=== PATIENT | female | born 1950 | race African-American/Black ===

== ENCOUNTER 2017-10-11 11:11 | Inpatient (IN) | payer OTHER, MEDICARE ==
[~2017-10-11] VITALS: Ht 162.6 cm; Wt 56.7 kg
[~2017-10-11 11:11] MED LIST: KEFLEX500 M1 PO
--- NOTE | 2017-10-11 11:56 | ED GENERAL ADULT ---
History of Present Illness General Chief Complaint: General Adult Stated Complaint: BIBA R SIDED FOOT PAIN, GENERAL WEAKNESS Source: patient, family, old records, EMS Exam Limitations: poor historian Vital Signs & Intake/Output Vital Signs & Intake/Output Vital Signs Date Time Temp Pulse Resp B/P B/P Pulse O2 O2 Flow FiO2 Mean Ox Delivery Rate 10/11 1414 97.6 70 18 148/72 95 Room Air 10/11 1124 97.8 65 15 172/78 95 Room Air Room Air Allergies Coded Allergies: No Known Allergies (10/11/17) Reconcile Medications Cephalexin (Keflex) 500 MG CAPSULE 1 CAP PO BID UTI Triage Note: PT TO ED FOR C/C OF NOT URINATING SINCE LAST NIGHT. PT EVAL'D IN THIS ED LAST NIGHT FOR BLOOD IN URINE. PT STATES SHE HASN'T BEEN ABLE TO VOID SINCE. ALSO COMPLAINS OF A PAINFUL CORN TO HER RIGHT GREAT TOE. Triage Nurses Notes Reviewed? yes Onset: Gradual Duration: worse persistent since (1 day) Timing: recent history Injury Environment: home Severity: moderate No Modifying Factors: none HPI: Patient is a 67-year-old female presenting to the emergency department from home with chief complaint of unable to urinate since this morning. 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 Patient does have chronic renal failure, per daughter patient has a difficult time drinking fluids. Also daughter reports that patient has had difficulty in regulating been progressively getting worse over the past several weeks. No falls. Daughter cannot take up the patient in transfer her any longer. Daughter thinks she is unsafe at home due to fall risk. Daughter thinks she may need rehabilitation. (Michelle Santiago) Past History Travel History Traveled to [place] past 21 day No Medical History Any Pertinent Medical History? see below for history Neurological: CVA W/ R SIDE DEFICIT Cardiovascular: hypertension, PACE MAKER Renal: ?CKD BUT REFUSES DIALYSIS Surgical History Surgical History: non-contributory Psychosocial History Who do you live with Daughter Services at Home None What is your primary language Kyrgyz Tobacco Use: Never used Family History Hx Contributory? No (Michelle Santiago) Review of Systems Review of Systems Constitutional: Reports: no symptoms. Comments Review of systems: See HPI, All other systems negative. Constitutional, no chills fever or weight loss HEENT: No visual changes no sore throat no congestion Cardiovascular: No chest pain ,palpitation Skin, no jaundice no rashes Respiratory: No dyspnea cough sputum or hemoptysis GI: No nausea no vomiting : pos hematuria Muscle skeletal: no back pain, no neck pain, Neurologic: No numbness no confusion no headaches Psych: No stress anxiety or depression,. Heme/endocrine: No bruising no bleeding no polyuria or polydipsia Immunology: No splenectomy or history of AIDS (Michelle Santiago) Physical Exam Physical Exam General Appearance: well developed/nourished, no apparent distress, alert, awake , comfortable Comments: thin person in no acute distress HEENT: atraumatic, normalcephalic, slightly dry oral mucosa Neck: Normal inspection Back: Nontender, NO CVA TENDERNESS Cardiovascular: Regular rate and rhythms no murmurs rubs or gallops Respiratory: No respiratory distress.breath sounds clear to auscultation bilaterally Abdomen: Soft, nontender nondistended, no appreciable organomegaly. Normal bowel sounds. No ascites, no rebound or guarding. Extremity: No edema, no calf tenderness to palpation, normal and equal pulses. Right foot in a Brace. Residual deficits on the right lower extremity FROM SVA. Neuro: Alert oriented to baseline Skin: No appreciable rash on exposed skin, skin is warm and dry. Psych: Mood and affect is normal, memory and judgment is normal. Core Measures ACS in differential dx? No CVA/TIA Diagnosis: No Sepsis Present: No Sepsis Focused Exam Completed? No (Michelle Santiago) Progress Differential Diagnoses I considered the following diagnoses in my evaluation of the patient: Dehydration, electrolyte abnormality, acute kidney injury, acute on chronic kidney injury, gait instability, multifactorial gait disorder, PYELO, KIDNEY STONE Plan of Care: Orders Procedure Date/time Status Regular Diet 10/11 D Active PARTIAL THROMBOPLASTIN TIME 10/11 1441 Active PROTHROMBIN TIME 10/11 1441 Active BLOOD CULTURE 10/11 1430 Active Patient Data 10/11 1422 Active OXYGEN SETUP (GEN) 10/11 1420 Active Saline Lock 10/11 1420 Active Admit to inpatient 10/11 1420 Active Vital Signs 10/11 1420 Active Activity/Ambulation 10/11 1420 Active Code Status 10/11 1420 Active Intake & Output 10/11 1258 Active URINALYSIS 10/11 1155 Complete COMPREHENSIVE METABOLIC PANEL 10/11 1155 Complete CBC WITHOUT DIFFERENTIAL 10/11 1155 Complete Current Medications Sig/Judah Start time Last Medication Dose Stop Time Status Admin Sodium Chloride 1,000 ML ONCE ONE 10/11 1315 AC 10/11 (Normal Saline 0.9%) 10/11 1953 1424 Laboratory Tests 10/11/17 1245: Urine Color YEL, Urine Clarity HAZY H, Urine pH 7.0, Ur Specific [place] 1.020, Urine Protein NEG, Urine Ketones NEG, Urine Nitrite NEG, Urine Bilirubin NEG, Urine Urobilinogen 1.0, Ur Leukocyte Esterase NEG, Ur Microscopic SEDIMENT EXAMINED, Urine RBC 15-25 H, Urine WBC 3-5 H, Ur Epithelial Cells MOD H, Urine Bacteria MOD H, Urine Hemoglobin SMALL H, Urine Glucose NEG 10/11/17 1200: Anion Gap 14, Estimated GFR 37 L, BUN/Creatinine Ratio 17.1, Glucose 102 H, Calcium 9.4, Total Bilirubin 0.8, AST 27, ALT 14, Alkaline Phosphatase 97, Total Protein 8.4 H, Albumin 3.9, Globulin 4.5 H, Albumin/Globulin Ratio 0.9 L, CBC w Diff NO MAN DIFF REQ, RBC 3.80 L, MCV 95.5, MCH 31.3 H, MCHC 32.8 L, RDW 14.6 H, MPV 8.2, Gran % 73.2, Lymphocytes % 17.8 L, Monocytes % 8.1, Eosinophils % 0.6, Basophils % 0.3, Absolute Granulocytes 4.5, Absolute Lymphocytes 1.1 L, Absolute Monocytes 0.5, Absolute Eosinophils 0, Absolute Basophils 0 Microbiology 10/11 143 BLOOD: Blood Culture - ORD 10/11 143 BLOOD: Blood Culture - ORD Initial ED EKG: none Comments: PT MAX assist of 3 trying to pivot and transfer from patient from the wheelchair to the bed. Patient unsafe to be discharged home. Patient will require IV hydration, rehabilitation. Patient imaging from yesterday shows pyelonephritis. Patient urine looks improved today. We will treat patient for pyelonephritis with IV Rocephin, blood cultures. (Tai DE SANTIAGO,Michelle) Departure Departure Time of Disposition: 1309 Disposition: STILL A PATIENT Condition: Stable Clinical Impression Primary Impression: Pyelonephritis Secondary Impressions: Dehydration, Multifactorial gait disorder Referrals: Carlee Steward APRN (PCP/Family) Departure Forms: Customer Survey General Discharge Information Admission Note Spoke With: Jc Hernandez MD Documentation of Exam: Documentation of any treatments & extenuating circumstances including Concerns Regarding Discharge (functional status, medication knowledge or non-compliance, living conditions, etc.) that warrant an admission rather than observation: Patient requiring IV hydration, physical therapy consultation, case management consultation, rehabilitation placement secondary to weakness, discharge at this time is medically harmful secondary to increased fall risk. (Michelle Santiago) PA/PULMONOLOGIST/INTENSIVIST Co-Sign Statement Statement: ED Attending supervision documentation- x I saw and evaluated the patient. I have also reviewed all the pertinent lab results and diagnostic results. I agree with the findings and the plan of care as documented in the PA's/PULMONOLOGIST/INTENSIVIST's documentation. Increasing weakness unable to ambulate without significant assistance with UTI [] I have reviewed the ED Record and agree with the PA's/PULMONOLOGIST/INTENSIVIST's documentation. [] Additions or exceptions (if any) to the PAs/PULMONOLOGIST/INTENSIVIST's note and plan are summarized below: [] (Harper MORALES,Miles) Critical Care Note Critical Care Note Critical Care Time: non-applicable (Michelle Santiago)
[2017-10-11 12:08] LABS: ABSOLUTE BASOPHIL COUNT 0 /CUMM (0.0-0.2); ABSOLUTE EOSINOPHIL COUNT 0 /CUMM (0.0-0.7); ABSOLUTE GRANULOCYTE CT 4.5 /CUMM (1.4-6.5); ABSOLUTE LYMPH COUNT 1.1 /CUMM (1.2-3.4); ABSOLUTE MONOCYTE COUNT 0.5 /CUMM (0.10-0.60); BASOPHIL % 0.3 % (0.0-2.0); EOSINOPHIL % 0.6 % (0-5); HEMATOCRIT 36.2 % (37-47); MEAN CORPUSCULAR HGB 31.3 PG (27.0-31.0); MEAN CORPUSCULAR HGB CONC 32.8 G/DL (33.0-37.0); MEAN CORPUSCULAR VOLUME 95.5 FL (81.0-99.0); MEAN PLATELET VOLUME 8.2 FL (7.4-10.4); PLATELET COUNT 194 /CUMM (130-400); RBC DISTRIBUTION WIDTH 14.6 % (11.5-14.5); WHITE BLOOD CELL COUNT 6.1 /CUMM (4.8-10.8)
[2017-10-11 12:11] LABS: GRANULOCYTE % 73.2 % (42.2-75.2)
[2017-10-11 15:35] LABS: PT 35.5 SEC (9.4-12.5); PTT 42 SEC (25-37)
--- NOTE | 2017-10-11 16:58 | History & Physical ---
Adonis Hahn 10/11/17 1307: General Information and HPI MD Statement: I have seen and personally examined XAVIER MORTON and documented this H&P. The patient is a 67 year old F who presented with a patient stated chief complaint of unable to urinate and urinary symptoms. Source of Information: patient, family Exam Limitations: no limitations History of Present Illness: This is a unfortunate 67-year-old female with past medical history significant for CVA with residual right-sided hemiplegia, speech deficit, hypertension, hyperlipidemia, hypothyroidism, atrial fibrillation on Coumadin, pacemaker placement, chronic kidney disease, neuropathy presented to the ER with chief complaint of unable to urinate. Patient was seen in the [facility] emergency department on 10/10/2017 for similar complaints. She was found to have urinary tract infection and hemoglobinuria. INR was supratherapeutic 4.5. She was discharged on Keflex and she was advised not to take Coumadin for next 2-3 days. However she couldn't pick her Keflex prescription. CAT scan abdomen findings were suggestive of mild asymmetric left -sided perinephric stranding and mild left hydronephrosis. Patient went home last night, after that she couldn't urinate because she was so weak and she couldn't get out of her bed. She denies any frequency, urgency, dysuria, lower abdominal pain, fever or chills. Patient has stroke 25 years back with the residual right-sided hemiplegia, speech deficit, uses a right leg brace and walker to ambulate. Because of urinary tract infection and generalized weakness she couldn't ambulate since last night. She was brought in to the emergency room again for further evaluation. She denies any shortness of breath, chest pain, palpitation, fever, chills, cough, nausea, vomiting, abdominal pain, constipation or diarrhea. Review of systems negative except for generalized weakness, urinary symptoms. She denies any smoking, illicit drug abuse, alcohol abuse. she has a visiting nurse who comes 3 times in a week. At baseline she ambulates with the help of walker and right leg brace. Allergies/Medications Allergies: Coded Allergies: No Known Allergies (10/11/17) Compliance With Home Meds: GOOD Past History Travel History Traveled to [place] past 21 day No Medical History Neurological: CVA W/ R SIDE DEFICIT Cardiovascular: hypertension, PACE MAKER Renal: ?CKD BUT REFUSES DIALYSIS Surgical History Surgical History: non-contributory Past Family/Social History Family History Relations & Conditions if any Relation not specified for: *No pertinent family history Psychosocial History Services at Home: None Smoking Status: Never Smoked ETOH Use: denies use Illicit Drug Use: denies illicit drug use Review of Systems Review of Systems Constitutional: Reports: see HPI. EENTM: Denies: blurred vision, double vision, visual changes. Cardiovascular: Denies: chest pain, edema, orthopena, palpitations, peripheral edema, syncope. Respiratory: Denies: cough, hemoptysis, orthopnea, short of breath, sputum production. GI: Denies: abdominal pain, bloating, constipation, melena, nausea, vomiting. Genitourinary: Reports: hesitation. Denies: discharge, dysuria, frequency, hematuria, nocturia , pain, urgency. Musculoskeletal: Denies: back pain, gout, joint pain, joint swelling, muscle pain. Neurological/Psychological: Reports: pre-existing deficit. Denies: anxiety, ataxia, confusion, depressed, dementia, headache, numbness, tingling, tremors. Exam & Diagnostic Data Last 24 Hrs of Vital Signs/I&O Vital Signs Date Time Temp Pulse Resp B/P B/P Pulse O2 O2 Flow FiO2 Mean Ox Delivery Rate 10/11 1755 98.1 50 20 162/80 97 Room Air 10/11 1649 97.5 714 16 146/74 99 Room Air 10/11 1414 97.6 70 18 148/72 95 Room Air 10/11 1124 97.8 65 15 172/78 95 Room Air Room Air Intake & Output 10/11 1600 10/11 0800 10/11 0000 Intake Total Output Total 220 Balance -220 Output, Urine 220 Physical Exam General Appearance Alert, Oriented X3, Cooperative, No Acute Distress Skin No Rashes, No Breakdown Skin Temp/Moisture Exam: Warm/Dry Sepsis Skin Exam (color): Normal for Ethnicity HEENT Atraumatic, PERRLA, EOMI, Mucous Membr. moist/pink Neck Supple, No JVD Lymphatic Cervical nl Cardiovascular Regular Rate, Normal S1, Normal S2, No Murmurs Lungs Normal Air Movement Abdomen Normal Bowel Sounds, Soft, No Tenderness Neurological speech deficit right complete paralysis left 5/5 Extremities No Clubbing, No Cyanosis, No Edema Vascular Normal Pulses, Pulses Symmetrical Last 24 Hrs of Labs/Michael: Laboratory Tests 10/11/17 1518: PT 35.5 H, INR 3.42 H, APTT 42 H 10/11/17 1245: Urine Color YEL, Urine Clarity HAZY H, Urine pH 7.0, Ur Specific Orange 1.020, Urine Protein NEG, Urine Ketones NEG, Urine Nitrite NEG, Urine Bilirubin NEG, Urine Urobilinogen 1.0, Ur Leukocyte Esterase NEG, Ur Microscopic SEDIMENT EXAMINED, Urine RBC 15-25 H, Urine WBC 3-5 H, Ur Epithelial Cells MOD H, Urine Bacteria MOD H, Urine Hemoglobin SMALL H, Urine Glucose NEG 10/11/17 1200: Anion Gap 14, Estimated GFR 37 L, BUN/Creatinine Ratio 17.1, Glucose 102 H, Calcium 9.4, Total Bilirubin 0.8, AST 27, ALT 14, Alkaline Phosphatase 97, Total Protein 8.4 H, Albumin 3.9, Globulin 4.5 H, Albumin/Globulin Ratio 0.9 L, CBC w Diff NO MAN DIFF REQ, RBC 3.80 L, MCV 95.5, MCH 31.3 H, MCHC 32.8 L, RDW 14.6 H, MPV 8.2, Gran % 73.2, Lymphocytes % 17.8 L, Monocytes % 8.1, Eosinophils % 0.6, Basophils % 0.3, Absolute Granulocytes 4.5, Absolute Lymphocytes 1.1 L, Absolute Monocytes 0.5, Absolute Eosinophils 0, Absolute Basophils 0 Microbiology 10/11 1638 BLOOD: Blood Culture - RECD 10/11 1430 BLOOD: Blood Culture - COLB 10/11 1245 URINE ROUT: Urine Culture - RECD Assessment/Plan Assessment: This is a unfortunate 67-year-old female with past medical history significant for CVA with residual right-sided hemiplegia, speech deficit, hypertension, hyperlipidemia, hypothyroidism, atrial fibrillation on Coumadin, pacemaker placement, chronic kidney disease, neuropathy presented to the ER with chief complaint of unable to urinate. Patient was seen in the [facility] emergency department on 10/10/2017 for similar complaints. She was found to have urinary tract infection and hemoglobinuria. INR was supratherapeutic 4.5. She was discharged on Keflex and she was advised not to take Coumadin for next 2-3 days. However she couldn't pick her Keflex prescription. CAT scan abdomen findings were suggestive of mild asymmetric left -sided perinephric stranding and mild left hydronephrosis. vitals afebrile, heart rate 60, respiratory rate 15, blood pressure 140/70, saturating at 95 on room air. Pertinent labs CbC completely normal BUN 24, creatinine 1.4 which is her baseline she has chronic kidney disease urine analysis showed nitrate, esterase, WBC, bacteria, hemoglobin. INR is supratherapeutic 3.42 LFT normal CAT scan There is mild asymmetric left-sided perinephric stranding. Mild left hydronephrosis. No right renal hydronephrosis. 1. Acute pyelonephritis Patient presented with difficulty to urinate and unable to ambulate. She is afebrile with normal WBC count. Urinalysis positive for nitrite, esterase, WBC, bacteria, hemoglobin. CAT scan abdomen which was done last night showed mild left perinephric stranding and hydronephrosis. Given her urinary symptoms and CAT scan findings she will be admitted to the general medicine floor for management of acute pyelonephritis. * admit to general med * Monitor vitals every shift * Monitor for fever, leukocytosis * Given her urinary symptoms and findings of acute pyelonephritis, will treat her with IV ceftriaxone 1 g daily * Please follow blood culture * follow-up urine cultures * Provide adequate hydration * Avoid nephrotoxic agents Atrial fibrillation/supratherapeutic INR Patient has history of atrial fibrillation, please continue her home medication propafenone 225 mg 3 times daily and Coumadin based on INR. * INR 3.42 * Coumadin was held today * Please follow-up INR in the a.m. and dose her Coumadin * Continue propafenone Chronic kidney disease Patient creatinine 1.4 at baseline. However she was found to have creatinine 2 in the past never underwent any dialysis. * please avoid nephrotoxic agents * adequate hydration. Hypernatremia Sodium 147 at the time of admission most likely from dehydration. * Provide half normal saline * recheck sodium in the a.m. Generalized weakness Physical therapy consult may need STIR placement Hypertension-continue home medication metoprolol 25 twice daily. Hyperlipidemia continue Lipitor 10 daily nerve pain continue gabapentin 300 mg once daily Hypothyroidism continue levothyroxine 125 g daily Full code Regular diet DVT prophylaxis on Coumadin Pain pathway ordered As Ranked By This Provider Problem List: 1. Warfarin-induced coagulopathy 2. Hydronephrosis 3. Dehydration 4. Multifactorial gait disorder 5. Pyelonephritis Core Measures/Misc (05/31) Acute Coronary Syndrome ACS Diagnosis: No Congestive Heart Failure Congestive Heart Failure Diagnosis No Cerebrovascular Accident CVA/TIA Diagnosis: No VTE (View Protocol) VTE Risk Factors Acute Medical Illness No Mechanical VTE Prophylaxis d/t N/A MechProphylax Ordered No VTE Pharm Prophylaxis d/t NA PharmProphylax ordered Sepsis (View protocol) Sepsis Present: No Jc Hernandez 10/11/17 1826: General Information and HPI Allergies/Medications Home Med list Cephalexin (Keflex) 500 MG CAPSULE 1 CAP PO BID UTI Ciprofloxacin HCl (Cipro) 250 MG TABLET 1 TAB PO BID uti Folic Acid 1 MG TABLET 1 TAB PO DAILY vitamin (Reported) Gabapentin 300 MG CAPSULE 1 CAP PO DAILY pain (Reported) Levothyroxine Sodium 125 MCG TABLET 1 TAB PO DAILY hypothyroid (Reported) Metoprolol Tartrate 25 MG TABLET 1 TAB PO BID htn (Reported) Propafenone HCl 225 MG TABLET 1 TAB PO TID afib (Reported) Simvastatin (Zocor*) 10 MG TABLET 1 TAB PO QPM HLP (Reported) Warfarin Sodium 3 MG TABLET 1 TAB PO DAILY AFIB (Reported) Attending MD Review Statement Attending Statement Attending MD Statement: examined this patient, discuss w/resident/PA/REMOTE BROADCAST TECHNICIAN, agreed w/resident/PA/REMOTE BROADCAST TECHNICIAN, discussed with family, reviewed EMR data (avail) Attending Assessment/Plan: 67 yr old F with pmf of CVA 25 yearas ago with speech defecits and rt side hemiplegia with contractueres and uses rt LE brace for helping with walking , Afib on coumadin, PPM, CKD who at baseline walks with cane or walker with limited mobility presented to the ER yesteray with urinary symptoms and was found to have UTI and was sent home on Keflex but pt was unable to fill in the prescription as pharmacy had closed. Pt was brought back to the ER today for unable to urinate and urinary symptoms. Pt had a CT abdomen done yesterday which showed mild asymmetric left-sided perinephric stranding and Mild left hydronephrosis. Left side pyelonephritis with mild left hydronephrosis- will cont with ceftriaxone. will f/u on urine cultures and blood cultures. Will f/u on renal panel closely . Cont on iv fluids . Declining overall health at home per granddaughter at bedside.- Will get PT consult to evaluate. Hypernatremia- likely secondary to dehydration. will hydrate with 1/2 NS. d/w pts family the care plan.
[2017-10-11] MEDS ORDERED: WARFARIN SODIUM3 M1 PO (17:26)
[2017-10-11] MEDS ORDERED: ZOCOR10 M1 PO (17:26)
[2017-10-11] MEDS ORDERED: FOLIC ACID1 M1 PO (17:26)
[2017-10-11] MEDS ORDERED: PROPAFENONE HC PO (17:27)
[2017-10-11] MEDS ORDERED: LEVOTHYROXINE125 MCG PO (17:28)
[2017-10-11] MEDS ORDERED: TOPROL XL25 M1 PO (17:28)
[2017-10-11] MEDS ORDERED: GABAPENTIN300 M2 PO (17:28)
[2017-10-11] MEDS ORDERED: METOPROLOL TART25 M1 PO (17:31)
[2017-10-11 17:55] VITALS: BP 162/80
[2017-10-11 22:47] VITALS: BP 116/72
[2017-10-12 06:20] VITALS: BP 170/80
--- NOTE | 2017-10-12 07:29 | PN- Housestaff ---
Pinky MORALES,Liudmila 10/12/17 0729: Subjective Follow-up For: UTI HYPERNATREMIA AFIB HYPERTENSION RIGHT SIDED WEAKNESS AND SLURRED SPEECH- ASSESS LEVEL OF FUNCTIONING OF DISCHARGE PLANNING. Subjective: PATIENT STATES THAT TODAY SHE FEELS BETTER. NO OVERNIGHT EVENTS. PATIENT NOTES NO DIFFICULTY URINATING AT THIS POINT. Review of Systems Constitutional: Reports: no symptoms. EENTM: Reports: no symptoms. Cardiovascular: Reports: no symptoms. Respiratory: Reports: no symptoms. Gastrointestinal: Reports: no symptoms. Genitourinary: Reports: no symptoms. Neurological/Psychological: Reports: pre-existing deficit. Objective Last 24 Hrs of Vital Signs/I&O Vital Signs Date Time Temp Pulse Resp B/P B/P Pulse O2 O2 Flow FiO2 Mean Ox Delivery Rate 10/12 1816 Room Air Room Air 10/12 1411 98.4 98 20 120/70 94 Room Air 10/12 1312 156/80 10/12 0755 60 150/84 10/12 0753 60 160/84 10/12 0620 98.1 57 18 170/80 97 Room Air 10/11 2247 98.7 86 20 116/72 97 Room Air 10/11 2208 50 162/80 10/11 2208 50 162/80 Intake & Output 10/12 1600 10/12 0800 10/12 0000 Intake Total 250 840 640 Output Total 400 300 Balance -150 840 340 Intake, IV 600 400 Intake, Oral 250 240 240 Output, Urine 400 300 Patient 125 lb Weight Physical Exam General Appearance: Alert, Cooperative, No Acute Distress Skin: No Rashes, No Breakdown, No Significant Lesion HEENT: Atraumatic, PERRLA, EOMI, Mucous Membr. moist/pink Neck: Supple, No JVD Cardiovascular: Normal S1, Normal S2, No Murmurs Lungs: Clear to Auscultation, Normal Air Movement Abdomen: Normal Bowel Sounds, Soft, No Tenderness Neurological: Sensation Intact, RIGHT SIDED HEMIPALEGIA OF FACE ON ARMS AND LEGS. MORE PRONOUNCED IN UPPER EXTREMITY AND FACE. STRENGTH IN UPPER EXTREMITY IS 3/5 AND LOWER IS 4/5. VOICE IS HOARSE APPARENTLY FROM SAME CVA. Extremities: No Edema, Normal Pulses, No Tenderness/Swelling Vascular: Normal Pulses, Pulses Symmetrical Current Medications: Current Medications Sig/Judah Start time Last Medication Dose Route Stop Time Status Admin Acetaminophen 650 MG Q6P PRN 10/11 1715 AC PO Atorvastatin Calcium 10 MG 1700 10/12 1700 AC 10/12 PO 1606 Ceftriaxone Sodium 1,000 MG DAILY@1630 10/12 1630 AC 10/12 IV 1606 Folic Acid 1 MG DAILY 10/11 1730 AC 10/12 PO 0755 Gabapentin 300 MG DAILY 10/11 1729 AC 10/12 PO 0755 Levothyroxine Sodium 0.125 MG DAILY AC 10/11 1729 AC 10/12 PO 0544 Metoprolol Tartrate 25 MG BID 10/11 2200 AC 10/12 PO 0755 Oxycodone/ 1 TAB Q6P PRN 10/11 1715 AC Acetaminophen PO Propafenone HCl 225 MG Q8H 10/12 0600 AC 10/12 PO 1312 Propafenone HCl 225 MG Q8H 10/11 1800 DC 10/12 PO 0544 Sodium Chloride 1,000 ML Q13H 10/11 1730 DC 10/12 IV 10/12 1929 0544 Sodium Chloride 1,000 ML ONCE ONE 10/11 1315 DC 10/11 IV 10/11 1954 1424 Last 24 Hrs of Lab/Michael Results Last 24 Hrs of Labs/Mics: Laboratory Tests 10/12/17 0830: Anion Gap 12, Estimated GFR 49 L, BUN/Creatinine Ratio 17.3, PT 32.2 H, INR 3.10 H, CBC w Diff NO MAN DIFF REQ, RBC 3.40 L, MCV 95.9, MCH 31.7 H, MCHC 33.1, RDW 14.8 H, MPV 8.4, Gran % 61.9, Lymphocytes % 25.6, Monocytes % 9.6 H, Eosinophils % 2.1, Basophils % 0.8, Absolute Granulocytes 3.2, Absolute Lymphocytes 1.3, Absolute Monocytes 0.5, Absolute Eosinophils 0.1, Absolute Basophils 0 Assessment/Plan Assessment: This is a unfortunate 67-year-old female with past medical history significant for CVA with residual right-sided hemiplegia, speech deficit, hypertension, hyperlipidemia, hypothyroidism, atrial fibrillation on Coumadin, pacemaker placement, chronic kidney disease, neuropathy presented to the ER with chief complaint of unable to urinate. Patient was seen in the [place] emergency department on 10/10/2017 for similar complaints. She was found to have urinary tract infection and hemoglobinuria. INR was supratherapeutic 4.5. She was discharged on Keflex and she was advised not to take Coumadin for next 2-3 days. However she couldn't lemon picker her Keflex prescription. CAT scan abdomen findings were suggestive of mild asymmetric left -sided perinephric stranding and mild left hydronephrosis. vitals afebrile, heart rate 60, respiratory rate 15, blood pressure 140/70, saturating at 95 on room air. Pertinent labs CbC completely normal BUN 24, creatinine 1.4 which is her baseline she has chronic kidney disease urine analysis showed nitrate, esterase, WBC, bacteria, hemoglobin. INR is supratherapeutic 3.42 LFT normal CAT scan There is mild asymmetric left-sided perinephric stranding. Mild left hydronephrosis. No right renal hydronephrosis. 1. Acute pyelonephritis Patient presented with difficulty to urinate and unable to ambulate. She is afebrile with normal WBC count. Urinalysis positive for nitrite, esterase, WBC, bacteria, hemoglobin. CAT scan abdomen which was done last night showed mild left perinephric stranding and hydronephrosis. Given her urinary symptoms and CAT scan findings she will be admitted to the general medicine floor for management of acute pyelonephritis. wbc found to be 6.1. afebrile. * Monitor vitals every shift * Monitor for fever, leukocytosis * Given her urinary symptoms and findings of acute pyelonephritis, will treat her with IV ceftriaxone 1 g daily WITH PLAN TO DC ON CIPRO? * Please follow blood culture * follow-up urine cultures * Provide adequate hydration 1/2ns rate 75cc/hr. as of noon the patient had gotten 3L. * Avoid nephrotoxic agents Atrial fibrillation/supratherapeutic INR Patient has history of atrial fibrillation, please continue her home medication propafenone 225 mg 3 times daily and Coumadin based on INR. * INR 3.10 * Coumadin was held today * Please follow-up INR in the a.m. and dose her Coumadin * Continue propafenone for rate control Chronic kidney disease Patient creatinine 1.4 is at baseline. However she was found to have creatinine 2 in the past never underwent any dialysis. * please avoid nephrotoxic agents * adequate hydration. Hypernatremia RESOLVED Sodium 147 at the time of admission most likely from dehydration. NOW 143. * Provide half normal saline * recheck sodium in the a.m. Generalized weakness Physical therapy consult FOR STR PLACEMENT Hypertension-continue home medication metoprolol 25 twice daily. PATIENT HAS BEEN RUNNING HIGH. BP TODAY 170/80. HOWEVER THIS EVENING IS 120/70. Hyperlipidemia continue Lipitor 10 daily nerve pain continue gabapentin 300 mg once daily Hypothyroidism continue levothyroxine 125 g daily Full code Regular diet DVT prophylaxis on Coumadin Pain pathway ordered Problem List: 1. Pyelonephritis 2. Multifactorial gait disorder 3. Dehydration Pain Ratin Pain Location: NA Pain Goal: Remain pain free Pain Plan: PATHWAY Tomorrow's Labs & Rationales: CBC BEP Jan Herman 10/12/17 1221: Attending MD Review Statement Attending Statement Attending MD Statement: examined this patient, discuss w/resident/PA/REFRIGERATOR REPAIRMAN, agreed w/resident/PA/REFRIGERATOR REPAIRMAN, discussed with family, reviewed EMR data (avail), discussed with nursing, discussed with case mgmt, reviewed images, amended to note Attending Assessment/Plan: 67 yr old F with pmh of CVA 25 years ago with speech defecits and rt side hemiplegia with contractures and uses rt LE brace for helping with walking , Afib on coumadin, PPM, CKD who at baseline walks with cane or walker with limited mobility presented to the ER yesteray with urinary symptoms and was found to have UTI and was sent home on Keflex but pt was unable to fill in the prescription as pharmacy had closed. Pt had a CT abdomen done yesterday which showed mild asymmetric left-sided perinephric stranding and Mild left hydronephrosis. Left side pyelonephritis with mild left hydronephrosis- will cont with ceftriaxone D2. will f/u on urine cultures and blood cultures. Encourage PO hydration. Declining overall health at home per granddaughter at bedside. PT f/u for dc planning. Hypernatremia- improving. cont supportive care for CVA. Continue home meds. gi/dvt prophyalxis full code.
[2017-10-12 07:53] VITALS: BP 160/84
[2017-10-12 08:48] LABS: ABSOLUTE BASOPHIL COUNT 0 /CUMM (0.0-0.2); ABSOLUTE EOSINOPHIL COUNT 0.1 /CUMM (0.0-0.7); ABSOLUTE GRANULOCYTE CT 3.2 /CUMM (1.4-6.5); ABSOLUTE LYMPH COUNT 1.3 /CUMM (1.2-3.4); ABSOLUTE MONOCYTE COUNT 0.5 /CUMM (0.10-0.60); BASOPHIL % 0.8 % (0.0-2.0); EOSINOPHIL % 2.1 % (0-5); GRANULOCYTE % 61.9 % (42.2-75.2); HEMATOCRIT 32.6 % (37-47); MEAN CORPUSCULAR HGB 31.7 PG (27.0-31.0); MEAN CORPUSCULAR HGB CONC 33.1 G/DL (33.0-37.0); MEAN CORPUSCULAR VOLUME 95.9 FL (81.0-99.0); MEAN PLATELET VOLUME 8.4 FL (7.4-10.4); PLATELET COUNT 155 /CUMM (130-400); RBC DISTRIBUTION WIDTH 14.8 % (11.5-14.5); WHITE BLOOD CELL COUNT 5.2 /CUMM (4.8-10.8)
[2017-10-12 09:00] LABS: PT 32.2 SEC (9.4-12.5)
[2017-10-12 14:11] VITALS: BP 120/70
--- NOTE | 2017-10-12 16:27 | Discharge Summary ---
Visit Information Visit Dates Admission Date: 10/11/17 Discharge Date: 10/14/17 Hospital Course Course Attending Physician: Jan Herman MD Primary Care Physician: Nichelle KAYECarlee [facility] Course: Patient is a 67-year-old female with PMH significant for CVA with residual right -sided hemiplegia, speech deficit, hypertension, hyperlipidemia, hypothyroidism, atrial fibrillation on Coumadin, pacemaker placement, chronic kidney disease, neuropathy presented to the ER with chief complaint of unable to urinate. Patient was seen in the [place] emergency department on 10/10/2017 for similar complaints. She was found to have urinary tract infection and hemoglobinuria. INR was supratherapeutic 4.5. She was discharged on Keflex and she was advised not to take Coumadin for next 2-3 days. However she couldn't pick her Keflex prescription. CAT scan abdomen findings were suggestive of mild asymmetric left -sided perinephric stranding and mild left hydronephrosis. vitals afebrile, heart rate 60, respiratory rate 15, blood pressure 140/70, saturating at 95 on room air. Pertinent labs CBC completely normal, BUN 24, creatinine 1.4 which is her baseline she has chronic kidney disease urine analysis showed nitrate, esterase, WBC, bacteria, hemoglobin. INR is supratherapeutic 3.42 LFT normal Abdomen CAT scan There is mild asymmetric left-sided perinephric stranding. Mild left hydronephrosis. No right renal hydronephrosis. Admitted to general medicine floor and the following is the management 1. Acute pyelonephritis Patient presented with difficulty to urinate and unable to ambulate. She is afebrile with normal WBC count. Urinalysis positive for nitrite, esterase, WBC, bacteria, hemoglobin. CAT scan abdomen which was done last night showed mild left perinephric stranding and hydronephrosis. Started on IV ceftriaxone 1gm daily. follow blood culture, follow-up urine cultures. Atrial fibrillation/supratherapeutic INR Patient has history of atrial fibrillation, continued her home medication propafenone 225 mg 3 times daily and holded Coumadin based on INR 3.42 at admission. Chronic kidney disease Patient creatinine 1.4 at baseline. However she was found to have creatinine 2 in the past never underwent any dialysis. Hypernatremia Sodium 147 at the time of admission - resolved after hydration Generalized weakness Physical therapy consulted - needs STR placement Hypertension-continue home medication metoprolol 25 twice daily. Hyperlipidemia continue Lipitor 10 daily nerve pain continue gabapentin 300 mg once daily Hypothyroidism continue levothyroxine 125 g daily Full code Regular diet DVT prophylaxis on Coumadin Pain pathway ordered Complications: None Allergies: Coded Allergies: No Known Allergies (10/11/17) Significant Procedures: SERVICE DATE: 10/10/17-184 EXAM TYPE: CAT - CT ABD & PELVIS W/O IV CONTRAS EXAMINATION: CT ABDOMEN AND PELVIS WITHOUT CONTRAST CLINICAL INFORMATION: Hematuria, on Coumadin COMPARISON: Renal ultrasound 06/26/2014 TECHNIQUE: Multidetector volumetric imaging was performed from the superior aspect of the liver through the pubic symphysis. Sagittal and coronal reformatted images were obtained on the technologist's workstation. DLP: 296 mGy-cm FINDINGS: LUNG BASES: There is bibasilar atelectasis. No consolidation or effusion. A 3 mm pulmonary nodule is present at the left lung base. LIVER, GALLBLADDER, AND BILIARY TREE: The patient's overlying right arm somewhat limits evaluation of the intra-abdominal contents. The liver is grossly unremarkable. The gallbladder is grossly unremarkable. PANCREAS: The pancreas is grossly unremarkable. SPLEEN: Unremarkable. ADRENAL GLANDS: Unremarkable. KIDNEYS AND URETERS: The left kidney is larger compared to the right. There is mild asymmetric left-sided perinephric stranding. Mild left hydronephrosis. No right renal hydronephrosis. No radiodense renal stones. BLADDER: The bladder is grossly unremarkable. No high density contents identified. GASTROINTESTINAL TRACT: There are no dilated loops of small or large bowel. Dense stool present throughout the colon. ABDOMINAL WALL: No significant hernia is appreciated. LYMPH NODES: Normal. VASCULAR: Grossly unremarkable. PELVIC VISCERA: The uterus is significantly enlarged with heterogeneous masses present throughout the myometrium, some of which contain calcifications. No discrete adnexal mass. OSSEOUS STRUCTURES: Right hip dynamic screw in place. Multilevel mild degenerative changes involving the lower thoracic lumbar spine. IMPRESSION: 1. Limited noncontrast study. 2. No CT evidence for high-density contents within the bladder. 3. Mild left-sided hydronephrosis. 4. Enlarged uterus, possibly secondary to underlying fibroids. This could be further assessed on dedicated pelvic ultrasound. Disposition Summary Disposition Principal Diagnosis: Acute pyelonephritis COPD exacerbation Additional Diagnosis: A.fib on warfarin CKD hypernatremia - resolved Discharge Disposition: short term rehab Discharge Instructions General Discharge Information Code Status: Full Code Patient's Diet: as tolerated Patient's Activity: as tolerated Follow-Up Instructions/Appts: please follow up with PCP in a week Medications at Discharge Discharge Medications: Stop taking the following medications: Cephalexin (Keflex) 500 MG CAPSULE ORAL TWICE DAILY Qty = 19 Continue taking these medications: Simvastatin (Zocor*) 10 MG TABLET 1 Tablet ORAL Every night Comments: ATORVASTATIN ADMINISTERED Last Taken: 10/13/17 Time: 4:13PM Warfarin Sodium (Warfarin Sodium) 3 MG TABLET 1 Tablet ORAL DAILY Comments: Last Taken: 10/13/17 Time: 4PM Folic Acid (Folic Acid) 1 MG TABLET 1 Tablet ORAL DAILY Comments: Last Taken: 10/14/17 Time: 9AM Propafenone HCl (Propafenone HCl) 225 MG TABLET 1 Tablet ORAL THREE TIMES DAILY Comments: Last Taken: 10/14/17 Time: 1:40PM Gabapentin (Gabapentin) 300 MG CAPSULE 1 Capsule ORAL DAILY Comments: Last Taken: 10/14/17 Time: 9AM Levothyroxine Sodium (Levothyroxine Sodium) 125 MCG TABLET 1 Tablet ORAL DAILY Comments: Last Taken: 10/14/17 Time: 6AM Metoprolol Tartrate (Metoprolol Tartrate) 25 MG TABLET 1 Tablet ORAL TWICE DAILY Comments: Last Taken: 10/14/17 Time: 9AM Start taking the following new medications: Ciprofloxacin HCl (Cipro) 250 MG TABLET 1 Tablet ORAL TWICE DAILY Qty = 10 No Refills Comments: IV FORM ADMINISTERED Last Taken: 10/13/17 Time: 4PM Copies To: Carlee Steward APRN Attending MD Review Statement Documenting Attending: Virgil MORALES,Jan Other Findings: 67 yr old F with pmh of CVA 25 years ago with speech defecits and rt side hemiplegia with contractures and uses rt LE brace for helping with walking , Afib on coumadin, PPM, CKD who at baseline walks with cane or walker with limited mobility presented to the ER yesteray with urinary symptoms and was found to have UTI and was sent home on Keflex but pt was unable to fill in the prescription as pharmacy had closed. Pt had a CT abdomen which showed mild asymmetric left-sided perinephric stranding and Mild left hydronephrosis. Left side pyelonephritis with mild left hydronephrosis- Changed to PO antibiotic. Urine cultures and blood cultures remain negative so far. Encourage PO hydration. Declining overall health at home per granddaughter at bedside. PT f/u for dc planning to STR. Hypernatremia- resolved. CKD cr baseline. cont supportive care for CVA. Continue home meds. awaiting bed availability to STR. Plan of care d/wed patient/daughter. FOLLOW UP PCP in 1 week of discharge.
[2017-10-12 20:46] VITALS: BP 120/76
[2017-10-13 06:50] VITALS: BP 134/76
--- NOTE | 2017-10-13 09:06 | PN- Housestaff ---
Pinky MORALES,Liudmila 10/13/17 0906: Subjective Follow-up For: UTI HYPERNATREMIA AFIB HYPERTENSION RIGHT SIDED WEAKNESS AND SLURRED SPEECH- ASSESS LEVEL OF FUNCTIONING OF DISCHARGE PLANNING Subjective: Patient feeling good, no complaints. Patient has not had a bowel movement in 3 days. Review of Systems Constitutional: Reports: no symptoms. Objective Last 24 Hrs of Vital Signs/I&O Vital Signs Date Time Temp Pulse Resp B/P B/P Pulse O2 O2 Flow FiO2 Mean Ox Delivery Rate 10/13 1433 97.3 53 20 110/70 97 Room Air 10/13 0842 134/80 10/13 0650 98.1 60 20 134/76 96 Room Air 10/13 0618 60 134/80 10/12 2358 98.2 18 96 Room Air 10/12 2049 75 120/76 10/12 2048 75 120/76 10/12 204 75 120/76 10/12 1816 Room Air Room Air Intake & Output 10/13 1600 10/13 0800 10/13 0000 Intake Total 300 180 700 Output Total 400 300 Balance -100 180 400 Intake, Oral 300 180 700 Output, Urine 400 300 Physical Exam General Appearance: Alert, Oriented X3, Cooperative, No Acute Distress Skin: No Rashes, No Breakdown, No Significant Lesion Skin Temp/Moisture Exam: Warm/Dry HEENT: Atraumatic, PERRLA, EOMI, Mucous Membr. moist/pink Cardiovascular: Normal S1, Normal S2, No Murmurs Lungs: Clear to Auscultation, Normal Air Movement Abdomen: Normal Bowel Sounds, Soft, No Tenderness Neurological: Normal Speech, Sensation Intact Extremities: No Clubbing, No Cyanosis, No Edema, Normal Pulses, No Tenderness/ Swelling, bilateraly corns Current Medications: Current Medications Sig/Judah Start time Last Medication Dose Route Stop Time Status Admin Acetaminophen 650 MG Q6P PRN 10/11 1715 AC PO Atorvastatin Calcium 10 MG 1700 10/12 1700 AC 10/13 PO 1613 Ceftriaxone Sodium 1,000 MG DAILY@1630 10/12 1630 AC 10/13 IV 1613 Docusate Sodium 100 MG BID 10/13 1119 AC 10/13 PO 1231 Folic Acid 1 MG DAILY 10/11 1730 AC 10/13 PO 0842 Gabapentin 300 MG DAILY 10/11 1729 AC 10/13 PO 0842 Levothyroxine Sodium 0.125 MG DAILY AC 10/11 1729 AC 10/13 PO 0616 Metoprolol Tartrate 25 MG BID 10/11 2200 AC 10/13 PO 0842 Oxycodone/ 1 TAB Q6P PRN 10/11 1715 AC Acetaminophen PO Polyethylene Glycol 17 GM DAILY 10/13 1119 AC 10/13 PO 1231 Propafenone HCl 225 MG Q8H 10/12 0600 AC 10/13 PO 1402 Senna 187 MG AT BEDTIME 10/13 2199 AC PO Warfarin Sodium 3 MG COUMADIN 1700 10/13 1700 AC 10/13 PO 10/13 2359 1613 Last 24 Hrs of Lab/Michael Results Last 24 Hrs of Labs/Mics: Laboratory Tests 10/13/17 0809: Anion Gap 13, Estimated GFR 37 L, BUN/Creatinine Ratio 16.4, PT 25.2 H, INR 2.42 H, CBC w Diff NO MAN DIFF REQ, RBC 3.59 L, MCV 95.3, MCH 31.5 H, MCHC 33.0, RDW 14.7 H, MPV 8.9, Gran % 60.1, Lymphocytes % 28.4, Monocytes % 9.7 H, Eosinophils % 1.5, Basophils % 0.3, Absolute Granulocytes 2.8, Absolute Lymphocytes 1.3, Absolute Monocytes 0.4, Absolute Eosinophils 0.1, Absolute Basophils 0 Assessment/Plan Assessment: This is a 67-year-old female with past medical history significant for CVA with residual right-sided hemiplegia, speech deficit, hypertension, hyperlipidemia, hypothyroidism, atrial fibrillation on Coumadin, pacemaker placement, chronic kidney disease, neuropathy presented to the ER with chief complaint of unable to urinate. Patient was seen in the [place] emergency department on 10/10/2017 for similar complaints. She was found to have urinary tract infection and hemoglobinuria. INR was supratherapeutic 4.5. She was discharged on Keflex and she was advised not to take Coumadin for next 2-3 days. However she couldn't miner pick her Keflex prescription. CAT scan abdomen findings were suggestive of mild asymmetric left -sided perinephric stranding and mild left hydronephrosis. vitals afebrile, heart rate 60, respiratory rate 15, blood pressure 140/70, saturating at 95 on room air. Pertinent labs CbC completely normal BUN 24, creatinine 1.4 which is her baseline she has chronic kidney disease urine analysis showed nitrate, esterase, WBC, bacteria, hemoglobin. INR is supratherapeutic 3.42 LFT normal CAT scan There is mild asymmetric left-sided perinephric stranding. Mild left hydronephrosis. No right renal hydronephrosis. Plan 1. Acute pyelonephritis Patient presented with difficulty to urinate and unable to ambulate. She is afebrile with normal WBC count. Urinalysis positive for nitrite, esterase, WBC, bacteria, hemoglobin. CAT scan abdomen which was done last night showed mild left perinephric stranding and hydronephrosis. Given her urinary symptoms and CAT scan findings she will be admitted to the general medicine floor for management of acute pyelonephritis. normal wbc. afebrile. patient previously failed keflex treatment. * Monitor vitals every shift * Monitor for fever, leukocytosis * Given her urinary symptoms and findings of acute pyelonephritis, will treat her with IV ceftriaxone 1 g daily with plan to dc on cipro * Please follow blood culture * follow-up urine cultures so far negative * Avoid nephrotoxic agents Atrial fibrillation/supratherapeutic INR Patient has history of atrial fibrillation, please continue her home medication propafenone 225 mg 3 times daily and Coumadin based on INR. * INR 2.42 * home dose of coumadin given 3mg * Please follow-up INR in the a.m. and dose her Coumadin * Continue propafenone for rate control Chronic kidney disease Patient creatinine 1.4 is at baseline. However she was found to have creatinine 2 in the past never underwent any dialysis. * please avoid nephrotoxic agents * adequate hydration. Hypernatremia RESOLVED Generalized weakness and difficulty ambulating Physical therapy is sugggesting STR Give bowel regimen preemptively Patient does have corns on her feet that her sister is stating could be the cause of her difficulty ambulating. We will refer to Dr. Cabrera podiatry [facility] for treatment of these corns Hypertension-continue home medication metoprolol 25 twice daily. PATIENT HAS BEEN RUNNING HIGH. BP TODAY 170/80. HOWEVER now BP is stable. Hyperlipidemia continue Lipitor 10 daily Nerve pain continue gabapentin 300 mg once daily Hypothyroidism continue levothyroxine 125 g daily Full code Regular diet DVT prophylaxis on Coumadin Pain pathway ordered Problem List: 1. Pyelonephritis 2. Multifactorial gait disorder Pain Ratin Pain Location: na Pain Goal: Remain pain free Pain Plan: na Tomorrow's Labs & Rationales: none patient is stable Jan Herman 10/13/17 1134: Attending MD Review Statement Attending Statement Attending MD Statement: examined this patient, discuss w/resident/PA/COMMUNICATIONS PLANNER, agreed w/resident/PA/COMMUNICATIONS PLANNER, discussed with family, reviewed EMR data (avail), discussed with nursing, discussed with case mgmt, reviewed images, amended to note Attending Assessment/Plan: 67 yr old F with pmh of CVA 25 years ago with speech defecits and rt side hemiplegia with contractures and uses rt LE brace for helping with walking , Afib on coumadin, PPM, CKD who at baseline walks with cane or walker with limited mobility presented to the ER yesteray with urinary symptoms and was found to have UTI and was sent home on Keflex but pt was unable to fill in the prescription as pharmacy had closed. Pt had a CT abdomen which showed mild asymmetric left-sided perinephric stranding and Mild left hydronephrosis. Left side pyelonephritis with mild left hydronephrosis- Change to PO antibiotic. Urine cultures and blood cultures remain negative so far. Encourage PO hydration. Declining overall health at home per granddaughter at bedside. PT f/u for dc planning to STR. Hypernatremia- improving. CKD cr baseline. cont supportive care for CVA. Continue home meds. gi/dvt prophyalxis full code.
--- NOTE | 2017-10-13 09:46 | Patient Discharge Instructions ---
Discharge Instructions General Discharge Information You were seen/treated for: UTI Special Instructions: 1. PLEASE FOLLOW UP WITH YOUR PCP IN ONE WEEK Diet Continue normal diet: Yes Activity Full Activity/No Limits: Yes Acute Coronary Syndrome Inclusion Criteria At DC or during hospital stay patient has or had the following: ACS DIAGNOSIS No Discharge Core Measures Meds if any: Prescribed or Continued at Discharge Meds if any: NOT Prescribed or Continued at Discharge Congestive Heart Failure Inclusion Criteria At DC or during hospital stay patient has or had the following: CHF DIAGNOSIS No Discharge Core Measures Meds if any: Prescribed or Continued at Discharge Meds if any: NOT Prescribed or Continued at Discharge Cerebrovascular accident Inclusion Criteria At DC or during hospital stay patient has or had the following: CVA/TIA Diagnosis No Discharge Core Measures Meds if any: Prescribed or Continued at Discharge Antithrombotic No Meds if any: NOT Prescribed or Continued at Discharge Venous thromboembolism Inclusion Criteria VTE Diagnosis No VTE Type NONE VTE Confirmed by (Test) NONE Discharge Core Measures - Per Current guidelines, there needs to be overlap - treatment for the first 5 days of Warfarin therapy. - If discharged on Warfarin prior to 5 days of - overlap therapy, the patient will need to be - assessed for post discharge needs including - *Post discharge parental anticoagulation - *Warfarin and/or parental anticoagulation education - *Follow up date to check INR post discharge At least 5 days overlap therapy as Inpatient No Meds if any: Prescribed or Continued at Discharge Note: Overlap Therapy is Warfarin and Anticoagulant Meds if any: NOT Prescribed or Continued at Discharge
[2017-10-13 09:58] LABS: PT 25.2 SEC (9.4-12.5)
[2017-10-13 10:09] LABS: ABSOLUTE BASOPHIL COUNT 0 /CUMM (0.0-0.2); ABSOLUTE EOSINOPHIL COUNT 0.1 /CUMM (0.0-0.7); ABSOLUTE GRANULOCYTE CT 2.8 /CUMM (1.4-6.5); ABSOLUTE LYMPH COUNT 1.3 /CUMM (1.2-3.4); ABSOLUTE MONOCYTE COUNT 0.4 /CUMM (0.10-0.60); BASOPHIL % 0.3 % (0.0-2.0); EOSINOPHIL % 1.5 % (0-5); GRANULOCYTE % 60.1 % (42.2-75.2); HEMATOCRIT 34.2 % (37-47); MEAN CORPUSCULAR HGB 31.5 PG (27.0-31.0); MEAN CORPUSCULAR VOLUME 95.3 FL (81.0-99.0); MEAN PLATELET VOLUME 8.9 FL (7.4-10.4); PLATELET COUNT 178 /CUMM (130-400); RBC DISTRIBUTION WIDTH 14.7 % (11.5-14.5); RED BLOOD CELL CT 3.59 /CUMM (4.20-5.40); WHITE BLOOD CELL COUNT 4.6 /CUMM (4.8-10.8)
[2017-10-13] MEDS ORDERED: CIPRO250 M1 PO (11:25)
[2017-10-13 14:33] VITALS: BP 110/70
[2017-10-13 22:44] VITALS: BP 116/78
[2017-10-14 06:56] VITALS: BP 150/82
--- NOTE | 2017-10-14 07:22 | PN- Housestaff ---
Pinky MORALES,Liudmila 10/14/17 0722: Subjective Follow-up For: UTI HYPERNATREMIA AFIB HYPERTENSION RIGHT SIDED WEAKNESS AND SLURRED SPEECH- ASSESS LEVEL OF FUNCTIONING OF DISCHARGE PLANNING Subjective: patient has no complaints today. is set for discharge. Review of Systems Constitutional: Reports: no symptoms. Objective Last 24 Hrs of Vital Signs/I&O Vital Signs Date Time Temp Pulse Resp B/P B/P Pulse O2 O2 Flow FiO2 Mean Ox Delivery Rate 10/14 1351 98.0 60 20 134/80 98 10/14 1347 97.8 60 20 134/80 10/14 1338 60 134/80 10/14 0900 62 132/68 10/14 0656 97.8 60 20 150/82 95 Room Air 10/14 0619 60 152/82 10/13 2244 98.1 66 20 116/78 98 Room Air 10/13 2033 66 116/78 10/13 2032 66 116/78 10/13 1433 97.3 53 20 110/70 97 Room Air Intake & Output 10/14 1600 10/14 0800 10/14 0000 Intake Total 360 180 600 Output Total 300 400 Balance 360 -120 200 Intake, Oral 360 180 600 Number 1 Bowel Movements Output, Urine 300 400 Physical Exam General Appearance: Alert, Oriented X3, Cooperative, No Acute Distress Skin Temp/Moisture Exam: Warm/Dry Sepsis Skin Exam (color): Normal for Ethnicity HEENT: Atraumatic, EOMI, Mucous Membr. moist/pink Cardiovascular: Regular Rate, Normal S1, Normal S2, No Murmurs Lungs: Clear to Auscultation, Normal Air Movement Abdomen: Normal Bowel Sounds, Soft, No Tenderness, No Hepatospenomegaly, No Masses Extremities: No Clubbing, No Cyanosis, No Edema, Normal Pulses, No Tenderness/ Swelling Current Medications: Current Medications Sig/Judah Start time Last Medication Dose Route Stop Time Status Admin Acetaminophen 650 MG Q6P PRN 10/11 1715 AC PO Atorvastatin Calcium 10 MG 1700 10/12 1700 AC 10/13 PO 1613 Bisacodyl 5 MG ONE ONE 10/14 1200 CAN PO 10/14 1201 Ceftriaxone Sodium 1,000 MG DAILY@1630 10/12 1630 AC 10/13 IV 1613 Docusate Sodium 100 MG BID 10/13 1119 AC 10/14 PO 0900 Folic Acid 1 MG DAILY 10/11 1730 AC 10/14 PO 0858 Gabapentin 300 MG DAILY 10/11 1729 AC 10/14 PO 0858 Levothyroxine Sodium 0.125 MG DAILY AC 10/11 1729 AC 10/14 PO 0619 Metoprolol Tartrate 25 MG BID 10/11 2200 AC 10/14 PO 0900 Oxycodone/ 1 TAB Q6P PRN 10/11 1715 AC Acetaminophen PO Polyethylene Glycol 17 GM DAILY 10/13 1119 AC 10/13 PO 1231 Propafenone HCl 225 MG Q8H 10/12 0600 AC 10/14 PO 1338 Senna 187 MG AT BEDTIME 10/13 2200 AC 10/13 PO 2031 Warfarin Sodium 3 MG COUMADIN 1700 ONE 10/14 1700 AC PO 10/14 1701 Warfarin Sodium 3 MG COUMADIN 1700 10/13 1700 DC 10/13 PO 10/13 2359 1613 Last 24 Hrs of Lab/Michael Results Last 24 Hrs of Labs/Mics: Laboratory Tests 10/14/17 0805: PT 23.2 H, INR 2.23 H Assessment/Plan Assessment: This is a 67-year-old female with past medical history significant for CVA with residual right-sided hemiplegia, speech deficit, hypertension, hyperlipidemia, hypothyroidism, atrial fibrillation on Coumadin, pacemaker placement, chronic kidney disease, neuropathy presented to the ER with chief complaint of unable to urinate. Patient was seen in the [place] emergency department on 10/10/2017 for similar complaints. She was found to have urinary tract infection and hemoglobinuria. INR was supratherapeutic 4.5. She was discharged on Keflex and she was advised not to take Coumadin for next 2-3 days. 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 CAT scan abdomen findings were suggestive of mild asymmetric left -sided perinephric stranding and mild left hydronephrosis. vitals afebrile, heart rate 60, respiratory rate 15, blood pressure 140/70, saturating at 95 on room air. Pertinent labs CbC completely normal BUN 24, creatinine 1.4 which is her baseline she has chronic kidney disease urine analysis showed nitrate, esterase, WBC, bacteria, hemoglobin. INR is supratherapeutic 3.42 LFT normal CAT scan There is mild asymmetric left-sided perinephric stranding. Mild left hydronephrosis. No right renal hydronephrosis. Plan 1. Acute pyelonephritis Patient presented with difficulty to urinate and unable to ambulate. She is afebrile with normal WBC count. Urinalysis positive for nitrite, esterase, WBC, bacteria, hemoglobin. CAT scan abdomen which was done last night showed mild left perinephric stranding and hydronephrosis. Given her urinary symptoms and CAT scan findings she will be admitted to the general medicine floor for management of acute pyelonephritis. normal wbc. afebrile. patient previously failed keflex treatment. * Given her urinary symptoms and findings of acute pyelonephritis, we treated her with ceftriaxone 1g daily and will dc her on cipro for total treatment of 7 days. * Urine cultures negative * Avoid nephrotoxic agents Atrial fibrillation/supratherapeutic INR Patient has history of atrial fibrillation, please continue her home medication propafenone 225 mg 3 times daily and Coumadin based on INR. * INR 2.23 * home dose of coumadin given 3mg * Continue propafenone for rate control Chronic kidney disease Patient creatinine 1.4 is at baseline. However she was found to have creatinine 2 in the past never underwent any dialysis. * please avoid nephrotoxic agents * adequate hydration. Hypernatremia RESOLVED Generalized weakness and difficulty ambulating Patient will go to [facility] today Give bowel regimen preemptively Patient does have corns on her feet that her sister is stating could be the cause of her difficulty ambulating. We will refer to Dr. Cabrera podiatry [facility] for treatment of these corns Hypertension-continue home medication metoprolol 25 twice daily. Hyperlipidemia continue Lipitor 10 daily Nerve pain continue gabapentin 300 mg once daily Hypothyroidism continue levothyroxine 125 g daily Full code Regular diet DVT prophylaxis on Coumadin Pain pathway ordered Problem List: 1. Pyelonephritis Pain Ratin Pain Location: na Pain Goal: Remain pain free Pain Plan: na Tomorrow's Labs & Rationales: snehal HermanJan 10/14/17 1154: Attending MD Review Statement Attending Statement Attending MD Statement: examined this patient, discuss w/resident/PA/UM RN, agreed w/resident/PA/UM RN, discussed with family, reviewed EMR data (avail), discussed with nursing, discussed with case mgmt, reviewed images, amended to note Attending Assessment/Plan: 67 yr old F with pmh of CVA 25 years ago with speech defecits and rt side hemiplegia with contractures and uses rt LE brace for helping with walking , Afib on coumadin, PPM, CKD who at baseline walks with cane or walker with limited mobility presented to the ER yesteray with urinary symptoms and was found to have UTI and was sent home on Keflex but pt was unable to fill in the prescription as pharmacy had closed. Pt had a CT abdomen which showed mild asymmetric left-sided perinephric stranding and Mild left hydronephrosis. Left side pyelonephritis with mild left hydronephrosis- Changed to PO antibiotic. Urine cultures and blood cultures remain negative so far. Encourage PO hydration. Declining overall health at home per granddaughter at bedside. PT f/u for dc planning to [facility]. Hypernatremia- resolved. CKD cr baseline. cont supportive care for CVA. Continue home meds. awaiting bed availability to [facility]. Plan of care d/wed patient/daughter. gi/dvt prophyalxis full code.
[2017-10-14 08:47] LABS: PT 23.2 SEC (9.4-12.5)
[2017-10-14 13:47] VITALS: BP 134/80
[2017-10-14 13:51] VITALS: BP 134/80
== END 2017-10-14 15:34 | DRG 690 ==
LOC: ERH 11:11 → 2NA 14:20 → ERHI 14:20 → ENRESERV 14:45 → ENTRNSPT 16:46 → 2NA 17:02 → EDTRNSPT 17:02 → EDTRNSPTSTS 17:02 → CMPTRNSPT 17:39 → 2NA 10-12 08:36 → ENPENDDIS 10-14 11:22 → 2NA 10-14 15:34
PROVIDERS: Hospitalist; Physician Assistant; Student in an Organized Health Care Education/Training Program
DX: N10 Acute pyelonephritis (principal); E87.0 Hyperosmolality and hypernatremia; I48.2 Chronic atrial fibrillation; D59.9 Acquired hemolytic anemia, unspecified; N13.30 Unspecified hydronephrosis; I69.351 Hemiplegia and hemiparesis following cerebral infarction affecting right dominant side; E86.0 Dehydration; E03.9 Hypothyroidism, unspecified; E78.5 Hyperlipidemia, unspecified; I12.9 Hypertensive chronic kidney disease with stage 1 through stage 4 chronic kidney disease, or unspecified chronic kidney disease; R26.9 Unspecified abnormalities of gait and mobility; Z79.01 Long term (current) use of anticoagulants; Z91.14 Patient's other noncompliance with medication regimen; N18.9 Chronic kidney disease, unspecified; I69.328 Other speech and language deficits following cerebral infarction; Z95.0 Presence of cardiac pacemaker; M79.2 Neuralgia and neuritis, unspecified
CPT/HCPCS: 2NASP; 36415; 74176; 81001; 82436; 87040; 87086; 97110-GO; 97161-GP; 97530-GO; J0696; J3490